=== PATIENT | female | born 1975 | race Caucasian/White ===

== ENCOUNTER 2017-12-10 21:27 | Inpatient (IN) | payer BC ==
[~2017-12-10] VITALS: Ht 154.9 cm; Wt 74.4 kg
[2017-12-10 21:49] VITALS: Ht 154.9 cm; Wt 74.4 kg
[2017-12-10 22:51] LABS: BASOPHIL % 0.4 % (0-2); PLATELET COUNT 255 x10^3mcL (130-400); RED CELL DISTRIBUTION WIDTH 12.6 % (11.5-14.5)
[2017-12-10 22:53] LABS: CALCIUM 8.9 mg/dL (8.5-10.1); CARBON DIOXIDE 28.7 mmol/L (21-32); CHLORIDE SERUM 101 mmol/L (98-107); CREATININE SERUM 0.9 mg/dL (0.6-1.0); GFR1 > 60 mL/min; GLUCOSE SERUM 157 mg/dL (74-106); POTASSIUM SERUM 3.5 mmol/L (3.5-5.1); SODIUM SERUM 134 mmol/L (136-145)
[2017-12-10 22:58] LABS: ALBUMIN 3.6 g/dL (3.4-5.0); ALKALINE PHOSPHATASE 95 U/L (46-116); ALT/SGPT 51 U/L (14-59); AST/SGOT 30 U/L (15-37); BILIRUBIN TOTAL 0.3 mg/dL (0.20-1.00); TOTAL PROTEIN, SERUM 7.6 g/dL (6.4-8.2)
[2017-12-10 23:09] LABS: LIPASE 4286 IU/L (73-393)
[2017-12-11 01:01] VITALS: BP 116/81
[2017-12-11 02:48] LABS: microscopic required? YES; urine erythrocyte 3+ (NEGATIVE)
[2017-12-11 05:24] VITALS: BP 98/54
[2017-12-11 08:30] VITALS: BP 109/67
[2017-12-11 13:05] VITALS: BP 122/82
[2017-12-11 16:38] VITALS: BP 126/82
[2017-12-11 20:52] VITALS: BP 123/86
[2017-12-12 05:14] VITALS: BP 115/72
[2017-12-12 06:16] LABS: BASOPHIL % 0.3 % (0-2); PLATELET COUNT 226 x10^3mcL (130-400); RED CELL DISTRIBUTION WIDTH 12.6 % (11.5-14.5)
[2017-12-12 06:19] LABS: CALCIUM 8.4 mg/dL (8.5-10.1); CARBON DIOXIDE 24.7 mmol/L (21-32); CHLORIDE SERUM 103 mmol/L (98-107); CREATININE SERUM 0.7 mg/dL (0.6-1.0); GFR1 > 60 mL/min; GLUCOSE SERUM 93 mg/dL (74-106); POTASSIUM SERUM 3.7 mmol/L (3.5-5.1); SODIUM SERUM 136 mmol/L (136-145)
[2017-12-12 06:30] LABS: LIPASE 2232 IU/L (73-393)
[2017-12-12 09:39] LABS: BILIRUBIN DIRECT 0.12 mg/dL (0.0-0.2); BILIRUBIN TOTAL 0.4 mg/dL (0.20-1.00); TOTAL PROTEIN, SERUM 6.8 g/dL (6.4-8.2)
[2017-12-12 09:40] LABS: ALBUMIN 3.2 g/dL (3.4-5.0)
[2017-12-12 12:02] VITALS: BP 126/80
[2017-12-12 17:05] VITALS: BP 123/79
[2017-12-12 20:43] VITALS: BP 97/61
[2017-12-13 05:41] VITALS: BP 104/67
[2017-12-13 06:28] LABS: BASOPHIL % 0.6 % (0-2); PLATELET COUNT 196 x10^3mcL (130-400); RED CELL DISTRIBUTION WIDTH 12.4 % (11.5-14.5)
[2017-12-13 06:54] LABS: ALKALINE PHOSPHATASE 75 U/L (46-116); ALT/SGPT 40 U/L (14-59); AST/SGOT 24 U/L (15-37); BILIRUBIN TOTAL 0.5 mg/dL (0.20-1.00); CHLORIDE SERUM 104 mmol/L (98-107); CREATININE SERUM 0.8 mg/dL (0.6-1.0); GFR1 > 60 mL/min; GLUCOSE SERUM 87 mg/dL (74-106); LIPASE 874 IU/L (73-393); POTASSIUM SERUM 3.5 mmol/L (3.5-5.1); SODIUM SERUM 139 mmol/L (136-145); TOTAL PROTEIN, SERUM 6.2 g/dL (6.4-8.2)
[2017-12-13 06:57] LABS: ALBUMIN 2.8 g/dL (3.4-5.0)
[2017-12-13 08:21] VITALS: BP 113/72
[2017-12-13 12:45] VITALS: BP 112/80
[2017-12-13 13:15] VITALS: BP 112/80
== END 2017-12-13 14:26 | disposition home or self-care (01) | DRG 391 ==
LOC: ED 21:27 → DU 12-11 00:03
PROVIDERS: Emergency Medicine; Internal Medicine; Internal Medicine Gastroenterology
PROC: 0DB68ZX Excision of Stomach, Via Natural or Artificial Opening Endoscopic, Diagnostic (ICD-10-PCS; principal; 2017-12-13 12:30)
DX: K29.90 Gastroduodenitis, unspecified, without bleeding (principal); K85.90 Acute pancreatitis without necrosis or infection, unspecified; Z98.51 Tubal ligation status; R09.1 Pleurisy
CPT/HCPCS: 43235; 74181; 90658; C9113; J1200; J1610; J1885; J2250; J2270; J2310; J2405; J3010; J3490; J7030; J7042; J7120; Q0092